=== PATIENT | female | born 1970 | race Caucasian/White ===

== ENCOUNTER 2019-08-07 21:28 | Emergency (ER) | payer MEDICAID ==
[~2019-08-07] VITALS: Ht 160 cm; Wt 59.0 kg
[2019-08-08] MEDS ORDERED: KETOROLAC 60MG/2ML VIAL IM ONE (01:00)
[2019-08-08 01:24] VITALS: BP 106/63
== END 2019-08-08 01:25 | disposition home or self-care (01) ==
LOC: ER 21:28
DX: M54.5 Low back pain (principal); Z90.49 Acquired absence of other specified parts of digestive tract; V43.52XA Car driver injured in collision with other type car in traffic accident, initial encounter; Y93.89 Activity, other specified; Y92.488 Other paved roadways as the place of occurrence of the external cause
CPT/HCPCS: 96372; 99283; J1885